=== PATIENT | male | born 1990 | race American Indian/Alaskan Native ===

== ENCOUNTER 2017-08-01 04:40 | Emergency (ER) | payer OTHER ==
[2017-08-01 05:03] VITALS: BP 145/93; PULSE 71; RESP 16; TEMP 98.1; O2SAT 99
--- NOTE | 2017-08-01 05:13 | ED PDOC ---
Upper Extremity Pain/Injury Time Seen by Provider: 08/01/17 05:01 Chief Complaint (Nursing): Upper Extremity Problem/Injury Chief Complaint (Provider): right arm pain History Per: Patient Additional Complaint(s): 26 year old right hand dominant male presents with pain and swelling to right forearm and wrist x 1 week. Patient denies any fall or trauma. Patient has not taken any meds for pain. He states he does a lot of heavy lifting and repetitive motions with his right arm at work. No associated numbness or tingling. PMD: none Past Medical History Reviewed: Historical Data, Nursing Documentation, Vital Signs Vital Signs: Last Vital Signs Temp 98.1 F 08/01/17 05:00 Pulse 71 08/01/17 05:00 Resp 16 08/01/17 05:00 BP 145/93 H 08/01/17 05:00 Pulse Ox 99 08/01/17 05:00 - Medical History PMH: No Chronic Diseases - Surgical History Surgical History: No Surg Hx - Family History Family History: States: No Known Family Hx - Living Arrangements Living Arrangements: With Family - Social History Current smoker - smoking cessation education provided: Yes Alcohol: None Drugs: Denies - Home Medications Home Medications: Ambulatory Orders Medication Instructions Recorded Ibuprofen [Motrin Tab] 800 mg PO Q8 PRN #20 tab 08/01/17 - Allergies Allergies/Adverse Reactions: Allergies Allergy/AdvReac Type Severity Reaction Status Date / Time No Known Allergies Allergy Verified 08/01/17 05:04 Review of Systems ROS Statement: Except As Marked, All Systems Reviewed And Found Negative Musculoskeletal: Positive for: Other (right arm pain). Negative for: Foot Pain Physical Exam - Reviewed Nursing Documentation Reviewed: Yes Vital Signs Reviewed: Yes - Physical Exam Appears: Positive for: Well, Non-toxic, No Acute Distress Skin: Negative for: Rash Eye Exam: Positive for: Normal appearance Neck: Positive for: Normal, Painless ROM Extremity: Positive for: Other (Mild swelling and tenderness to right forearm and wrist with full range of motion, no warmth or erythema, normal capillary refill, normal distal sensation, palpable radial pulse) Neurologic/Psych: Positive for: Alert, Oriented - ECG O2 Sat by Pulse Oximetry: 99 Pulse Ox Interpretation: Normal - Other Rad X-ray right forearm and wrist X-Ray: Interpreted by Me, Viewed By Me X-Ray Interpretation: no fx, no dis Medical Decision Making Medical Decision Makin26 year old with right arm pain Plan: PO motrin X-ray right forearm and wrist Patient was given rx motrin. Splint applied. Ortho referral given. Procedures - Splinting Location: right arm Pre-Made Type: metal (metallic metacarpal splint applied, secured with amber wrap) Pre-Proc Neuro Vasc Exam: normal Post-Proc Neuro Vasc Exam: normal Disposition - Clinical Impression Clinical Impression: Forearm sprain, Wrist sprain - Patient ED Disposition Is Patient to be Admitted: No Counseled Patient/Family Regarding: Studies Performed, Diagnosis, Need For Followup, Rx Given - Disposition Referrals: David Barnett III, MD [Staff Provider] - Disposition: Routine/Home Disposition Time: 05:16 Condition: STABLE Additional Instructions: Ice, rest and elevate affected area. Take rx meds as directed as needed for pain Follow up with orthopedist in 2-3 days Prescriptions: Ibuprofen [Motrin Tab] 800 mg PO Q8 PRN #20 tab PRN Reason: Pain, Moderate (4-7) Instructions: Wrist Sprain (DC) Forms: [employer] (Thai), [facility] ED School/Work Excuse
--- NOTE | 2017-08-01 09:46 | RAD ---
PROCEDURE: Right Wrist Radiographs. HISTORY: pain COMPARISON: None. FINDINGS: BONES: No acute fracture. JOINTS: Unremarkable. SOFT TISSUES: Mild dorsal wrist soft tissue swelling. OTHER FINDINGS: None. IMPRESSION: Mild dorsal wrist soft tissue swelling without demonstrated fracture or dislocation.
--- NOTE | 2017-08-01 09:47 | RAD ---
PROCEDURE: Radiographs of the Right Forearm HISTORY: pain COMPARISON: None available. TECHNIQUE: Frontal and lateral views obtained. FINDINGS: BONES: No fracture or destructive lesion. JOINT SPACES: Unremarkable. OTHER FINDINGS: None. IMPRESSION: Unremarkable radiographs of the right forearm.
== END 2017-08-01 06:00 | disposition home or self-care (01) ==
LOC: H.ER 04:40
DX: F17.200 Nicotine dependence, unspecified, uncomplicated (principal); X50.3XXA Overexertion from repetitive movements, initial encounter; Y99.0 Civilian activity done for income or pay